=== PATIENT | female | born 1945 ===

== ENCOUNTER → 2017-11-15 | Outpatient (REF) | LOC: ZZSLMC 12:00 | PROVIDERS: ATTEND Surgery | DX: K63.5 Polyp of colon (principal) | CPT/HCPCS: 88305 ==

== ENCOUNTER → 2018-01-31 | Outpatient (REF) | LOC: ZZSLMC 12:00 | PROVIDERS: ATTEND Family Medicine | DX: C43.62 Malignant melanoma of left upper limb, including shoulder (principal) | CPT/HCPCS: 88305 ==

== ENCOUNTER → 2018-02-10 | Outpatient (REF) | LOC: ZZSLMC 12:00 | PROVIDERS: ATTEND Family Medicine | DX: D23.9 Other benign neoplasm of skin, unspecified (principal) | CPT/HCPCS: 88305 ==